=== PATIENT | male | born 1970 | race Caucasian/White ===

== ENCOUNTER → 2024-03-04 12:35 | Outpatient (REF) | payer BC, MEDICAID, SELFPAY | LOC: RCS 12:35 | PROVIDERS: ATTENDING PHYSICIAN Internal Medicine Cardiovascular Disease; FAMILY PHYSICIAN Family Medicine | DX: E66.01 Morbid (severe) obesity due to excess calories (principal); I49.3 Ventricular premature depolarization | CPT/HCPCS: 93306; Q9950 ==

== ENCOUNTER → 2024-07-15 11:12 | Outpatient (REF) | payer BC, MEDICAID, SELFPAY | LOC: RAD 11:12 | PROVIDERS: ATTENDING PHYSICIAN Family Medicine | DX: R06.09 Other forms of dyspnea (principal) | CPT/HCPCS: 71046 ==

== ENCOUNTER → 2024-08-31 10:02 | Outpatient (REF) | payer BC, MEDICAID, SELFPAY | LOC: RAD 10:02 | PROVIDERS: ATTENDING PHYSICIAN Family Medicine | DX: J18.9 Pneumonia, unspecified organism (principal) | CPT/HCPCS: 71046 ==

== ENCOUNTER 2025-03-10 13:23 | Emergency (ER) | payer BC, MEDICAID, SELFPAY ==
--- NOTE | 2025-03-10 13:55 | ED.GENMED ---
History of Present Illness
General
Chief Complaint: Breathing Problem
Source: patient
Time Seen by Provider: 03/10/25 13:46
History of Present Illness
History of Present Illness:
54-year-old male presents to the emergency room complaining of shortness of breath, chest tightness, cough. Symptoms present for the past 4 to 5 days. Patient went to urgent care today where they performed a COVID test which was negative. They
did a chest x-ray which is not available for me to view but the patient states showed something abnormal like fluid or a pneumonia. He has not taken his temperature does not believe he had a fever. He denies any weight gain. He is short of breath
with exertion. No nausea, vomiting, diaphoresis.
Past History
Past History
ED Past Medical History: None
ED Past Surgical History: None
Social History
Tobacco: Non-smoker
Alcohol: None
Drug: None
Personal: Single
Living: with family
Employment: Employed
Phy Exam
Physical Exam
Physical Exam:
General: Awake, Alert, Oriented X3. High BMI. Perhaps mild increased work of breathing
Vitals: unremarkable
Head: Atraumatic
Eyes: Pupils equal, EOMI
Throat: Airway intact, no exudates
Neck: Trachea midline
Lungs: Expiratory wheezing
Heart: Regular rate, no murmurs
Abd: Soft, Nontender, No pulsatile mass
Neuro: Nonfocal
Skin: Warm, dry, no rash
Extremities: pulses equal b/l, no edema
Scores
Heart Failure Risk
Heart Failure Risk Score: Not Applicable
Course
Orders/Labs/Results
Orders:
Orders
03/10/25 13:30
Electrocardiogram (*1) Urgent
Reason for Study: Shortness of Breath
EKG- Treatment ONCE
03/10/25 13:54
Albuterol Nebs [Ventolin Nebules] 2.5 mg INH R NOW STA
CR Chest - 2 Views Urgent
Comment:
Reason For Exam: shortness of breath
03/10/25 14:17
Basic Metabolic Panel Urgent
NT-proBNP Urgent
Troponin I Urgent
03/10/25 16:10
Doxycycline [Vibramycin] 100 mg PO NOW STA
03/10/25 16:11
Prednisone [Deltasone] 50 mg PO NOW STA
Abnormal Lab Results
03/10/25
14:17
Sodium 131 L mmol/L
(135-145)
Creatinine 0.5 L mg/dL
(0.7-1.3)
Glucose 172 H mg/dl
(70-99)
03/10/25 14:17
Vital Signs
Initial and Last Documented VS:
Initial Vital Signs
Temp Pulse Resp Pulse Ox
97.9 F 96 16 95
03/10/25 13:26 03/10/25 13:26 03/10/25 13:26 03/10/25 13:26
Last Documented Vital Signs
Temp Pulse Resp BP Pulse Ox
97.9 F 87 16 144/70 91
03/10/25 13:26 03/10/25 15:00 03/10/25 13:26 03/10/25 15:00 03/10/25 15:00
MDM/Problems Addressed
Differential Diagnosis Includes:
Acute bronchitis, pneumonia, heart failure, pneumothorax
MDM/Problems Addressed:
Patient presents with shortness of breath with exertion and cough. Workup here shows mildly elevated glucose consistent with his history of diabetes. No other significant abnormalities. BNP at 462 which is relatively low given his age. On
physical exam the patient noted to have wheezing which significantly improved with breathing treatment. He does not have any significant peripheral edema. Overall the presentation seems more consistent with a acute bronchitis. His chest x-ray
appears to be underinflated. I discussed the chest x-ray with Dr. Kline who is the radiologist reading today. She describes the x-ray as having perhaps a tiny effusions bilaterally and perhaps right lower lobe infiltrate beginning. No heart
failure. Will treat this acute bronchitis with prednisone, bronchodilator and antibiotics. Recommend patient return if he is no better in 48 hours or he feels like he is getting worse.
*Radiology
Radiology exam reviewed: radiology read reviewed
*Pulse Oximetry
SaO2: 95
Oxygen Mode of Delivery: Room air
Patient hypoxic: no
*EKG
Interpreted by ED Provider?: Yes
Heart Rate: 89
Rate: normal
Rhythm: sinus
[place]: normal axis
Interval: normal interval
QRS Pattern: normal QRS
Ischemia: no ischemia
*[employer] Operator Interpretation
Rate: normal
Interpretation: normal
Heart Rate: 89
Rhythm: sinus
*Critical Care Note
Total Time (30-74mins, 75-104mins- exclusive of procedures): Not Applicable
ED Attending Note
-
Portions of this chart may have been created with voice recognition software.� Occasional wrong word or��sound alike� substitutions may have occurred due to the inherent limitations of voice recognition software.
Discharge Plan
Departure
Patient Disposition: Home (Routine Discharge)
Date of Disposition: 03/10/25
Time of Disposition: 16:12
Patient with high blood pressure during this ER visit?: Yes
Discharge Problem:
Breath shortness, Acute bronchitis
Instructions: Acute Bronchitis, Adult (DC), BLOOD PRESSURE
Prescriptions:
New
albuterol sulfate [Ventolin HFA] 90 mcg/actuation HFA aerosol inhaler
2 puff inhalation Q6H PRN (Reason: shortness of breath or wheezing) Qty: 8.5 0RF
doxycycline hyclate 100 mg capsule
100 mg PO BID 7 Days Qty: 14 0RF
prednisone 20 mg tablet
40 mg PO DAILY Qty: 8 0RF
No Action
atorvastatin 40 mg Tablet
40 mg PO QPM
dextromethorphan polistirex [Delsym 12 hour] 30 mg/5 mL Suspension,Extended Rel 12 Hr
10 ml PO DAILYPRN PRN (Reason: cough)
dextroamphetamine-amphetamine [Adderall] 10 mg Tablet
20 mg PO DAILY
Patient Comments:
last filled 02/14/25 #90 @ [id number]
dextroamphetamine-amphetamine [Adderall] 10 mg Tablet
10 mg PO QPM
Patient Comments:
last filled 02/14/25 #90 @ [id number]
cyanocobalamin (vitamin B-12) 1,000 mcg Tablet
2,000 mcg PO DAILY
insulin aspart U-100 [Novolog U-100 Insulin aspart] 100 unit/mL Solution
See Rx Instructions .ROUTE .COMPLEX
Rx Instructions:
up to 30u with dinner
metformin 1,000 mg Tablet
1,000 mg PO BID
lisinopril 10 mg Tablet
10 mg PO QPM
cholecalciferol (vitamin D3) 25 mcg (1,000 unit) Tablet
25 mcg PO DAILY
insulin glargine [Lantus Solostar U-100 Insulin] 100 unit/mL (3 mL) Insulin Pen
60 unit SC DAILY
Jardiance 25 mg Tablet
25 mg PO DAILY
Ozempic 0.25 mg or 0.5 mg (2 mg/3 mL) Pen Injector
0.5 mg SC SHETTY
Referrals:
Angelito Bowie DO [Family Provider, Family Practice]
Interventions
Interventions:
*Risk Screen - Suicide Last Done: 03/10/25 13:26
*General Assessment Last Done: 03/10/25 14:04
*Neglect/Abuse Screening Last Done: 03/10/25 13:26
*ED- Fall Risk Assessment Last Done: 03/10/25 14:04
*ED COVID-19 Vaccine History Last Done: 03/10/25 14:04
*Nursing Disposition Last Done: 03/10/25 16:43
ED- Cardiac Assessment Last Done: 03/10/25 14:05
ED- Pulmonary Assessment Last Done: 03/10/25 14:05
Discharge Date and Time
Discharge Date/Time: 03/10/25 16:44
Print Language: PORTUGUESE
[2025-03-10 14:03] VITALS: BMI 42.8
[2025-03-10 14:15] VITALS: BP 130/56
[2025-03-10] MEDS: VENTOLIN NEBULES 2.5 MG INH (14:22)
[2025-03-10 14:38] LABS: Blood Urea Nitrogen 14 mg/dl (9-20); Calcium 8.6 mg/dl (8.4-10.2); Carbon Dioxide 27 mmol/L (22-30); Chloride 99 mmol/L (98-107); Estimated Creatinine Clearance 12 ml/min; Glucose 172 mg/dl (70-99); Potassium 4.7 mmol/L (3.5-5.1); Sodium 131 mmol/L (135-145); eGFR > 60.00
[2025-03-10 14:50] LABS: Troponin I < 0.012 ng/ml
[2025-03-10 15:00] VITALS: BP 144/70
[2025-03-10] MEDS: VIBRAMYCIN 100 MG PO (16:26)
[2025-03-10] MEDS: DELTASONE 50 MG PO (16:26)
== END 2025-03-10 16:44 | disposition home or self-care (01) ==
LOC: EMR 13:23
PROVIDERS: EMERGENCY PHYSICIAN Emergency Medicine; FAMILY PHYSICIAN Family Medicine
DX: J20.9 Acute bronchitis, unspecified (principal); R06.02 Shortness of breath; R03.0 Elevated blood-pressure reading, without diagnosis of hypertension; E11.65 Type 2 diabetes mellitus with hyperglycemia; Z88.0 Allergy status to penicillin
CPT/HCPCS: 99283; 94640; 71046; 80048; 83880; 84484; 93005